=== PATIENT | female | born 1980 | race American Indian/Alaskan Native ===

== ENCOUNTER 2016-07-07 07:57 | Emergency (ER) | payer SELFPAY ==
[2016-07-07 08:29] VITALS: BP 106/80
[2016-07-07 08:48] LABS: Basophils % (Auto) 0.4 % (0.0-1.8); Eosinophils % (Auto) 1.3 % (0.0-4.3); Hematocrit 36.6 % (30.3-42.9); Hemoglobin 12.2 gm/dl (10.1-14.3); Mean Corpuscular HGB Conc 33 % (30-34); Mean Corpuscular Hemoglobin 32 pg (28-32); Mean Corpuscular Volume 96 fl (79-97); Platelet Count 313 K/mm3 (140-440); Red Cell Distribution Width 14.6 % (13.2-15.2); White Blood Count 9.8 K/mm3 (4.5-11.0)
[2016-07-07 09:07] LABS: Alanine Aminotransferase 8 units/L (7-56); Albumin 4.3 g/dL (3.9-5); Albumin/Globulin Ratio 1.3 %; Alkaline Phosphatase 69 units/L (35-129); Anion Gap 16 mmol/L; Blood Urea Nitrogen 9 mg/dL (7-17); Calcium 9.3 mg/dL (8.4-10.2); Carbon Dioxide 27 mmol/L (22-30); Chloride 101.3 mmol/L (98-107); Glucose 90 mg/dL (65-100); Lipase 33 units/L (13-60); Sodium 140 mmol/L (137-145); Total Protein 7.6 g/dL (6.3-8.2)
[2016-07-07 11:23] LABS: Bacteria,Urine 1+ /HPF (Negative); Bilirubin,Urine NEG (Negative); Blood,Urine SM (Negative); Ketones,Urine NEG (Negative); Leukocyte Esterase,Urine NEG (Negative); Mucus,Urine 3+ /HPF; Nitrite,Urine NEG (Negative); Urobilinogen,Urine < 2.0 mg/dL (<2.0)
== END 2016-07-07 14:45 ==
LOC: ED 07:57
DX: K08.89 Other specified disorders of teeth and supporting structures (principal); F17.200 Nicotine dependence, unspecified, uncomplicated; F12.90 Cannabis use, unspecified, uncomplicated; Z88.8 Allergy status to other drugs, medicaments and biological substances; Z91.048 Other nonmedicinal substance allergy status; Z53.21 Procedure and treatment not carried out due to patient leaving prior to being seen by health care provider
CPT/HCPCS: 36415; 80053; 81001; 83690; 85025

== ENCOUNTER 2016-07-09 05:58 | Emergency (ER) | payer SELFPAY ==
[2016-07-09 07:05] VITALS: BP 146/97
--- NOTE | 2016-07-09 07:47 | Emergency Department Report ---
HPI - General Chief Complaint: Dental/Oral Time Seen by Provider: 07/09/16 07:23 - HPI HPI: Here reports that she's been is having toothache on and off for a while today at 7 out of 10 located to her right lower tooth. He reports that she's having facial swelling. Denies any fever or chills. She says she's been taking Tylenol and ibuprofen without any help. Pain and feels achy. Denies any sore throat or respiratory symptoms. ED Past Medical Hx - Past Medical History Previous Medical History?: No - Surgical History Past Surgical History?: Yes Additional Surgical History: left hand - Family History Family history: no significant - Social History Smoking Status: Current Every Day Smoker Substance Use Type: Marijuana - Medications Home Medications: Home Medications Medication Instructions Recorded Confirmed Last Taken Type Acetaminophen/Codeine [Tylenol 1 tab PO Q6H PRN #15 tab 07/09/16 Unknown Rx /Codeine # 3 tab] Penicillin Vk [Veetids TAB] 500 mg PO TID #60 tablet 07/09/16 Unknown Rx ED Review of Systems ROS: Stated complaint: TOOTHACHE Other details as noted in HPI Comment: All other systems reviewed and negative Constitutional: denies: chills, fever Eyes: denies: eye pain ENT: dental pain. denies: ear pain, throat pain, congestion Respiratory: no symptoms reported Cardiovascular: denies: chest pain, palpitations, edema, syncope Gastrointestinal: denies: nausea, vomiting Musculoskeletal: denies: back pain, arthralgia Skin: denies: rash Neurological: denies: headache Physical Exam - Physical Exam Vital Signs: Vital Signs 07/09/16 06:00 Temperature 98.7 F Pulse Rate 74 Blood Pressure 146/97 O2 Sat by Pulse 99 Oximetry General: This is a 46-year-old female that is nontoxic in appearance. She shouting and yelling. Physical Exam: Head: [Normocephalic atraumatic Mouth: Moist, no pharyngeal exudate or erythema. Uvula is midline and oral airway is patent. Positive dental caries. Gingival enlargement. No mucosa swelling or cellulitic areas. Neck: Supple, no C-spine tenderness, no tracheal deviation. Nontender to palpate. no adenopathy Ears: Bilateral TMs pearly styles.bilateral EAC without any redness swelling or drainage Eyes: Bilateral pupils equal and reactive to light, bilateral EOM intact. Bilateral sclera and conjunctiva without injection. Normal accommodation Nose: Mucosa normal. maxillary and frontal sinus non-tender to palpate. Lungs: Clear to auscultate bilaterally no rhonchi wheezes or rales. Normal work of breathing extremity; No CCE. +2 pulses. No neurovascular compromise Cardiovascular: S1-S2, regular rate rhythm. No murmurs. Skin: clean Dry and intact no rash no lesions Psych: Normal mood and behavior ED Course Vital Signs 07/09/16 06:00 Temperature 98.7 F Pulse Rate 74 Blood Pressure 146/97 O2 Sat by Pulse 99 Oximetry - Reevaluation(s) Reevaluation #1: 07/09/16 08:05 Patient given Motrin 800 mg in emergency room for toothache ED Medical Decision Making - Medical Decision Making ED course: with diagnosis of dental caries, gingival enlargement and toothache. She has a dentist that she can follow-up said right now she needs some medication to stop the pain. Discussed with patient her diagnosis and treatment plan. Patient discharged home with prescription for Tylenol No. 3 and penicillin VK . Critical care attestation.: If time is entered above; I have spent that time in minutes in the direct care of this critically ill patient, excluding procedure time. ED Disposition Clinical Impression: Tooth ache, Enlargement, gingival, Dental caries Disposition: DISCHARGED TO HOME OR SELFCARE Is pt being admited?: No Does the pt Need Aspirin: No Condition: Stable Instructions: Dental Caries (ED), Toothache (ED) Additional Instructions: Follow up with [facility] dental clinic as instructed. Take antibiotic as prescribed Do not use Tylenol No. 3 [address] or operating heavy machinery as this medication will cause drowsiness Prescriptions: Acetaminophen/Codeine [Tylenol /Codeine # 3 tab] 1 tab PO Q6H PRN #15 tab PRN Reason: Toothache Penicillin Vk [Veetids TAB] 500 mg PO TID #60 tablet Referrals: [facility] [Outside] - 2-3 Days [facility] [Outside] - 2-3 Days PRIMARY CARE, [Primary Care Provider] - 2-3 Days
[2016-07-09] MEDS ORDERED: MOTRIN PO ONE (08:04)
== END 2016-07-09 08:14 | disposition home or self-care (01) ==
LOC: ED 05:58
DX: K02.9 Dental caries, unspecified (principal); K06.1 Gingival enlargement; F17.200 Nicotine dependence, unspecified, uncomplicated; F12.10 Cannabis abuse, uncomplicated
CPT/HCPCS: 99282

== ENCOUNTER 2016-11-16 08:22 | Inpatient (IN) | payer MEDICAID ==
[2016-11-16 08:53] LABS: Basophils % (Auto) 0.6 % (0.0-1.8); Eosinophils % (Auto) 0.2 % (0.0-4.3); Hematocrit 40.1 % (30.3-42.9); Hemoglobin 13.7 gm/dl (10.1-14.3); Mean Corpuscular HGB Conc 34 % (30-34); Mean Corpuscular Hemoglobin 33 pg (28-32); Mean Corpuscular Volume 95 fl (79-97); Platelet Count 441 K/mm3 (140-440); Red Cell Distribution Width 14.1 % (13.2-15.2); White Blood Count 14.5 K/mm3 (4.5-11.0)
[2016-11-16 09:13] LABS: Anion Gap 21 mmol/L; BUN/Creatinine Ratio 11.42; Blood Urea Nitrogen 8 mg/dL (7-17); Calcium 9.8 mg/dL (8.4-10.2); Carbon Dioxide 20 mmol/L (22-30); Glucose 91 mg/dL (65-100); Potassium 3.9 mmol/L (3.6-5.0); Sodium 136 mmol/L (137-145)
[2016-11-16 09:52] LABS: INR 1.02 (0.87-1.13); Partial Thromboplastin Time 29.2 Sec. (24.2-36.6)
[2016-11-16 10:40] LABS: Bilirubin,Urine NEG (Negative); Blood,Urine LG (Negative); Ketones,Urine 20 mg/dL (Negative); Leukocyte Esterase,Urine TR (Negative); Mucus,Urine 3+ /HPF; Nitrite,Urine NEG (Negative); Urobilinogen,Urine < 2.0 mg/dL (<2.0)
[2016-11-16 10:42] LABS: RBC,Urine > 182.0 /HPF (0.0-6.0); WBC,Urine > 182.0 /HPF (0.0-6.0)
[2016-11-16] MEDS ORDERED: MORPHINE IV ONE (17:31)
[2016-11-16] MEDS ORDERED: ZOFRAN IV ONE ×2 (17:31→22:08)
[2016-11-16] MEDS ORDERED: NACL 0.9% 1000 ML 1,000 ML IV ONE (17:31)
[2016-11-16] MEDS ORDERED: BENADRYL IV ONE (17:51)
--- NOTE | 2016-11-16 18:44 | Emergency Department Report ---
HPI - General Chief Complaint: Chest Pain Time Seen by Provider: 11/16/16 16:39 - HPI HPI: The patient is a 36-year-old female who presents for evaluation of chest pain and abdominal pain. The patient reports severe chest pain for the past one day , 10/10 in severity, midsternal left-sided location, sharp in quality, radiating to the back, exacerbated with lying flat, and improved with sitting up. She shares that prior to her chest pain she experienced multiple episodes of nausea and vomiting that began 3 days ago along with generalized abdominal pain, 5/10 in severity, crampy in quality, exacerbated with vomiting. The patient denies fever, chills, night sweats, diarrhea, blood in the stool, dark tarry stool, dysuria, hematuria, flank pain, genital discharge, inability to pass flatus or defecate. She shares that she passed a bowel movement within the past 48 hours. She also says that she is currently on her menstrual period. She admits to irregular menstrual periods for many years and has had a prolonged menstrual period for the past 2-3 weeks. ED Past Medical Hx - Past Medical History Previous Medical History?: No - Surgical History Past Surgical History?: Yes Additional Surgical History: left hand, TUBAL LIGATION - Social History Smoking Status: Current Every Day Smoker Substance Use Type: None - Medications Home Medications: Home Medications Medication Instructions Recorded Confirmed Last Taken Type No Known Home Medications [No 11/16/16 11/16/16 Unknown History Reported Home Medications] ED Review of Systems ROS: Stated complaint: CHEST PAIN, VOMITING AND VAGINAL BLEEDING Other details as noted in HPI Constitutional: denies: fever ENT: denies: throat or neck pain Respiratory: denies: cough, shortness of breath Cardiovascular: reports chest pain Endocrine: denies unexplained weight loss or gain Gastrointestinal: reports abdominal pain, nausea Genitourinary: denies: dysuria Musculoskeletal: denies: leg swelling Skin: denies: rash Neurological: denies: headache Hematological/Lymphatic: denies: easy bleeding or easy bruising Psych: denies sadness or hopelessness Physical Exam - Physical Exam Vital Signs: Vital Signs 11/16/16 11/16/16 11/16/16 08:35 14:57 14:58 Temperature 99.3 F Pulse Rate 70 72 Respiratory 18 18 18 Rate Blood Pressure 140/98 137/95 [Left] O2 Sat by Pulse 100 100 100 Oximetry 11/16/16 17:48 Temperature Pulse Rate Respiratory 18 Rate Blood Pressure [Left] O2 Sat by Pulse Oximetry Physical Exam: General: well-nourished, well-developed, no acute distress Head: Normocephalic, atraumatic Eyes: normal sclera ENT: Mucous membranes are pale and dry Neck: No neck stiffness, no cervical adenopathy Respiratory: Breath sounds equal bilaterally, no wheezing, rales, or rhonchi Cardio: S1 and S2 present, no murmurs, rubs, gallops, capillary refill is delayed Abdomen: Normoactive bowel sounds, soft abdomen, generalized tenderness to palpation present, no rigidity, no guarding or rebound tenderness Chest WALL/Back: Chest pain is reproduced with supine positioning, No tenderness to palpation of the chest wall, no CVA tenderness with percussion Musc: No pitting edema Skin: No rash Neuro: no facial drooping, normal speech Psych: Normal affect ED Course Vital Signs 11/16/16 11/16/16 11/16/16 08:35 14:57 14:58 Temperature 99.3 F Pulse Rate 70 72 Respiratory 18 18 18 Rate Blood Pressure 140/98 137/95 [Left] O2 Sat by Pulse 100 100 100 Oximetry 11/16/16 17:48 Temperature Pulse Rate Respiratory 18 Rate Blood Pressure [Left] O2 Sat by Pulse Oximetry ED Medical Decision Making - Lab Data Result diagrams: 11/16/16 08:38 11/16/16 08:38 - Medical Decision Making The patient was seen and examined by myself. The patient is placed on a monitoring engineer and continuous pulse ox. On initial evaluation, the patient was found to be in no distress. EKG was negative for findings suggestive of acute cardiac infarct. Labs and imaging are obtained. Chest x-ray is negative for pneumothorax, focal consolidation, pulmonary vascular congestion, pleural effusion, or other obvious acute cardiopulmonary disease process. The patient is given IV morphine for pain, IV Protonix for treatment of GI bleed, and 1 L normal saline fluid bolus for treatment of dehydration. Lab results revealed elevated WBC of 14, and otherwise labs were non-concerning including nml levels of troponin, hemoglobin, hematocrit, electrolytes, renal function, lfts, lipase , and negative test. CT scan with IV contrast of the chest is negative for mediastinitis, pericarditis, aortic dissection, or other emergent intrathoracic disease process. CT scan of the abdomen and pelvis is negative for aortic injury, bowel obstruction, bowel perforation, or other emergent intra-abdominal disease process. Despite negative initial imaging, the patient's symptoms and exam findings are concerning for Boerhaave syndrome. The patient is given IV Zosyn and Rocephin for treatment of potential developing mediastinitis, and started on an IV Protonix drip for treatment of GI bleed.. The on-call meat smoker Dr. Sanchez was consulted. He agreed to consultation and requested the patient receive esophagram at earliest possible time. Communication order is placed for IR consult at 7am for arrangement of esophagram in the am. The on-call hospitalist service was contacted. They agreed to admit the patient for further treatment and close monitoring. The ED admit order was placed. The patient was admitted in guarded condition. Critical care attestation.: If time is entered above; I have spent that time in minutes in the direct care of this critically ill patient, excluding procedure time. ED Disposition Clinical Impression: Boerhaave syndrome, Acute chest pain, Acute upper GI bleeding Gastritis Qualifiers: Gastritis type: unspecified gastritis Chronicity: acute Gastritis bleeding: with bleeding Qualified Code(s): K29.01 - Acute gastritis with bleeding Intractable nausea and vomiting Qualifiers: Vomiting type: unspecified Qualified Code(s): R11.2 - Nausea with vomiting, unspecified Disposition: 09 OP ADMIT IP TO THIS HOSP Is pt being admited?: Yes Does the pt Need Aspirin: No (acute gi bleed) Condition: Serious Instructions: Chest Pain (ED) Referrals: PRIMARY CARE, [Primary Care Provider] - 3-5 Days Time of Disposition: 02:11
[2016-11-16] MEDS ORDERED: DILAUDID IV ONE (18:51)
--- NOTE | 2016-11-16 19:34 | XRay Report ---
FINAL REPORT EXAM: XR CHEST 1V AP HISTORY: chest pain TECHNIQUE: Single-view chest PRIORS: None. FINDINGS: No focal consolidations are seen in the lungs.The cardiomediastinal silhouette is within normal limits for size and contour. No acute osseous abnormality is identified. IMPRESSION: 1. No definite radiographic evidence of acute cardiopulmonary disease.
--- NOTE | 2016-11-16 21:08 | Cat Scan Report ---
FINAL REPORT EXAM: CT CHEST W CON HISTORY: pleuritic chest pain, worst supine, WBC 14 TECHNIQUE: Serial axial images through the abdomen and pelvis with coronal and sagittal reconstruction. Intravenous administration of 100 milliliters Omnipaque 300 PRIORS: None. FINDINGS: No focal consolidations are seen in the lungs and there are no pleural effusions. No mediastinal adenopathy is identified. The heart measures approximately 12 centimeters in length. No abnormal filling defects are identified in the pulmonary arteries. The gastric mucosa is mildly hyper enhancing. No acute osseous abnormality is identified. IMPRESSION: 1. No definite acute pulmonary embolism is identified. 2. No focal infiltrate or pleural effusion is seen. 3. Gastric mucosa is mildly hyper enhancing. Possibility of gastritis is not excluded.
[2016-11-16] MEDS ORDERED: VALIUM IV ONE ×2 (22:08→23:00)
[2016-11-16] MEDS ORDERED: MORPHINE ONE ×2 (22:50)
[2016-11-16] MEDS ORDERED: PROTONIX IV ONE (23:00)
[2016-11-17] MEDS ORDERED: ROCEPHIN/NS 1 GM/50 ML 1 GM/50 ML BAG IV ONE (00:34)
[2016-11-17] MEDS ORDERED: SUBLIMAZE IV ONE (00:58)
[2016-11-17] MEDS ORDERED: ATIVAN IV ONE (00:58)
--- NOTE | 2016-11-17 01:24 | Cat Scan Report ---
FINAL REPORT PROCEDURE: CT ABDOMEN PELVIS W CON TECHNIQUE: Computerized axial tomography of the abdomen and pelvis was performed after the IV injection of iodinated nonionic contrast. HISTORY: generalized abd pain, coffe ground emesis COMPARISON: No prior studies are available for comparison. FINDINGS: Visualized lower thorax: No significant abnormality. Liver: Normal size and attenuation. Spleen: Normal size and attenuation. Gallbladder and biliary system: Normal. Pancreas: Normal. Adrenals: Normal. Kidneys: Normal. GI tract: There is no bowel obstruction, colitis or enteritis. The appendix is normal.. Lymph nodes and mesentery: Normal. Vasculature: Normal. Bladder: Normal. Reproductive organs: Uterus is intact. There is a 3 centimeter cyst versus dermoid in the left ovary.. Peritoneum: There is no ascites, free air, abscess or adenopathy.. Musculoskeletal structures: No significant abnormality. Other: None. IMPRESSION: There is no acute bowel abnormality. There is a 3 centimeter cyst versus dermoid in the left ovary.. There is no ascites, free air, abscess or adenopathy..
[2016-11-17] MEDS ORDERED: ZOFRAN IV ONE (02:31)
[2016-11-17] MEDS ORDERED: PROTONIX 80 MG in NACL 0.9% 100 ML IV SCH (03:00)
[2016-11-17] MEDS: ZOSYN/NS 3.375GM/50ML 3.375 GM/50 ML BAG IV SCH ×2 (03:00→09:30)
[2016-11-17] MEDS ORDERED: NARCAN 0.4 MG/1 ML IV PRN (03:01)
[2016-11-17] MEDS ORDERED: DULCOLAX PR PRN (03:01)
[2016-11-17] MEDS ORDERED: TYLENOL PO PRN (03:01)
[2016-11-17] MEDS ORDERED: MILK OF MAGNESIA PO PRN (03:01)
[2016-11-17] MEDS ORDERED: PROVENTIL IH PRN (03:01)
[2016-11-17 03:02] LABS: Alanine Aminotransferase 8 units/L (7-56); Albumin 3.7 g/dL (3.9-5); Albumin/Globulin Ratio 1.2 %; Alkaline Phosphatase 49 units/L (35-129); Lipase 15 units/L (13-60); Total Protein 6.9 g/dL (6.3-8.2)
[2016-11-17 03:05] LABS: Hematocrit 35.1 % (30.3-42.9); Hemoglobin 11.6 gm/dl (10.1-14.3); Mean Corpuscular HGB Conc 33 % (30-34); Mean Corpuscular Hemoglobin 32 pg (28-32); Mean Corpuscular Volume 97 fl (79-97); Platelet Count 373 K/mm3 (140-440); Red Blood Count 3.61 M/mm3 (3.65-5.03); Red Cell Distribution Width 13.7 % (13.2-15.2); White Blood Count 13.8 K/mm3 (4.5-11.0)
[2016-11-17 03:06] LABS: Bilirubin,Direct < 0.2 mg/dL (0-0.2); Bilirubin,Indirect 0.3 mg/dL
[2016-11-17] MEDS ORDERED: PROTONIX IV ONE (03:06)
--- NOTE | 2016-11-17 03:12 | History and Physical Report ---
History of Present Illness Date of examination: 11/17/16 Date of admission: 11/17/2016 Chief complaint: Chest pain abdominal pain persistent nausea and vomiting with blood History of present illness: The patient is a 36-year-old female who presents for evaluation of chest pain and abdominal pain. The patient reports severe chest pain for the past one day , 10/10 in severity, midsternal left-sided location, sharp in quality, radiating to the back, exacerbated with lying flat, and improved with sitting up. She shares that prior to her chest pain she experienced multiple episodes of nausea and vomiting that began 3 days ago along with generalized abdominal pain, 5/10 in severity, crampy in quality, exacerbated with vomiting. The patient denies fever, chills, night sweats, diarrhea, blood in the stool, dark tarry stool, dysuria, hematuria, flank pain, genital discharge, inability to pass flatus or defecate. She shares that she passed a bowel movement within the past 48 hours. She also says that she is currently on her menstrual period. She admits to irregular menstrual periods for many years and has had a prolonged menstrual period for the past 2-3 weeks. Past History Past Medical History: No medical history Past Surgical History: Other (hand surgery and tubal ligation) Social history: smoking, full code. denies: alcohol abuse, IV drug use Family history: no significant family history Medications and Allergies Allergies Allergy/AdvReac Type Severity Reaction Status Date / Time povidone-iodine AdvReac Rash Verified 07/07/16 08:29 [From Betadine] soap [From Betadine] AdvReac Rash Verified 07/07/16 08:29 Home Medications Medication Instructions Recorded Confirmed Last Taken Type No Known Home Medications [No 11/16/16 11/16/16 Unknown History Reported Home Medications] Active Meds: Active Medications Piperacillin Sod/Tazobactam Sod (Zosyn/Ns 3.375gm/50ml) 3.375 gm in 50 mls @ 100 mls/hr IV Q6H TARAN Pantoprazole Sodium 80 mg/ (Sodium Chloride) 100 mls @ 10 mls/hr IV DIRECT TRAAN PRN Reason: 8 MG/HR Review of Systems All systems: negative (as mentioned in HPI) Exam - Physical Exam Narrative exam: Gen - patient is awake alert oriented to time place and person in mild distress secondary to pain HEENT - head is atraumatic normocephalic pupils equal round reactive to light, extraocular movements intact, oral mucosa moderately dry , oropharynx clear neck is supple no JVD no thyromegaly or lymphadenopathy no carotid bruits trachea is midline Heart - regular rate and rhythm no murmurs or gallops PMI nondisplaced Lungs - clear to auscultation bilaterally nonlabored breathing normal chest wall expansion no chest wall tenderness Abdomen - soft nondistended , mild epigastric tenderness with no rebound guarding or rigidity, normoactive bowel sounds, no hepatosplenomegaly , no abdominal masses or bruit appreciated Extremities - no cyanosis or edema. Neurological - grossly intact and nonfocal. Sensation is grossly intact. Cranial nerves II-12 grossly intact. No cerebellar signs. Skin - warm and dry no rashes or bruises Psychiatric - appropriate mood and affect Vascular system - no lymphadenopathy distal pulses 2+ bilaterally - Constitutional Vitals: Temp Pulse Resp BP Pulse Ox 99.3 F 71 16 111/84 99 11/16/16 14:57 11/17/16 02:09 11/17/16 02:09 11/17/16 02:09 11/17/16 02:09 Results - Labs CBC & Chem 7: 11/17/16 02:42 11/16/16 08:38 Labs: Laboratory Last Values WBC 13.8 K/mm3 (4.5-11.0) H 11/17/16 02:42 RBC 3.61 M/mm3 (3.65-5.03) L 11/17/16 02:42 Hgb 11.6 gm/dl (10.1-14.3) 11/17/16 02:42 Hct 35.1 % (30.3-42.9) 11/17/16 02:42 MCV 97 fl (79-97) 11/17/16 02:42 MCH 32 pg (28-32) 11/17/16 02:42 MCHC 33 % (30-34) 11/17/16 02:42 RDW 13.7 % (13.2-15.2) 11/17/16 02:42 Plt Count 373 K/mm3 (140-440) 11/17/16 02:42 Lymph % (Auto) 26.0 % (13.4-35.0) 11/16/16 08:38 Rolette % (Auto) 6.4 % (0.0-7.3) 11/16/16 08:38 Eos % (Auto) 0.2 % (0.0-4.3) 11/16/16 08:38 Baso % (Auto) 0.6 % (0.0-1.8) 11/16/16 08:38 Lymph # Outside Plant Cable Engineer 11/17/16 02:42 Rolette # 0.9 K/mm3 (0.0-0.8) H 11/16/16 08:38 Eos # 0.0 K/mm3 (0.0-0.4) 11/16/16 08:38 Baso # 0.1 K/mm3 (0.0-0.1) 11/16/16 08:38 Seg Neutrophils % 66.8 % (40.0-70.0) 11/16/16 08:38 Seg Neutrophils # 9.7 K/mm3 (1.8-7.7) H 11/16/16 08:38 PT 13.9 Sec. (12.2-14.9) 11/16/16 08:38 INR 1.02 (0.87-1.13) 11/16/16 08:38 APTT 29.2 Sec. (24.2-36.6) 11/16/16 08:38 Sodium 136 mmol/L (137-145) L 11/16/16 08:38 Potassium 3.9 mmol/L (3.6-5.0) 11/16/16 08:38 Chloride 99.0 mmol/L (98-107) 11/16/16 08:38 Carbon Dioxide 20 mmol/L (22-30) L 11/16/16 08:38 Anion Gap 21 mmol/L 11/16/16 08:38 BUN 8 mg/dL (7-17) 11/16/16 08:38 Creatinine 0.7 mg/dL (0.7-1.2) 11/16/16 08:38 Estimated GFR > 60 ml/min 11/16/16 08:38 BUN/Creatinine Ratio 11.42 % 11/16/16 08:38 Glucose 91 mg/dL (65-100) 11/16/16 08:38 Calcium 9.8 mg/dL (8.4-10.2) 11/16/16 08:38 Total Bilirubin 0.50 mg/dL (0.1-1.2) 11/17/16 02:08 Direct Bilirubin < 0.2 mg/dL (0-0.2) 11/17/16 02:08 Indirect Bilirubin 0.3 mg/dL 11/17/16 02:08 AST 10 units/L (5-40) 11/17/16 02:08 ALT 8 units/L (7-56) 11/17/16 02:08 Alkaline Phosphatase 49 units/L (35-129) 11/17/16 02:08 Troponin T < 0.010 ng/mL (0.00-0.029) 11/16/16 15:01 Total Protein 6.9 g/dL (6.3-8.2) 11/17/16 02:08 Albumin 3.7 g/dL (3.9-5) L 11/17/16 02:08 Albumin/Globulin Ratio 1.2 % 11/17/16 02:08 Lipase 15 units/L (13-60) 11/17/16 02:08 HCG, Qual Negative (Negative) 11/16/16 08:38 Urine Color Red (Yellow) 11/16/16 10:01 Urine Turbidity Cloudy (Clear) 11/16/16 10:01 Urine pH 6.0 (5.0-7.0) 11/16/16 10:01 Ur Specific [place] 1.027 (1.003-1.030) 11/16/16 10:01 Urine Protein 100 mg/dl mg/dL (Negative) 11/16/16 10:01 Urine Glucose (UA) Neg mg/dL (Negative) 11/16/16 10:01 Urine Ketones 20 mg/dL (Negative) 11/16/16 10:01 Urine Blood Lg (Negative) 11/16/16 10:01 Urine Nitrite Neg (Negative) 11/16/16 10:01 Urine Bilirubin Neg (Negative) 11/16/16 10:01 Urine Urobilinogen < 2.0 mg/dL (<2.0) 11/16/16 10:01 Ur Leukocyte Esterase Tr (Negative) 11/16/16 10:01 Urine WBC (Auto) > 182.0 /HPF (0.0-6.0) H 11/16/16 10:01 Urine RBC (Auto) > 182.0 /HPF (0.0-6.0) 11/16/16 10:01 U Epithel Cells (Auto) 11.0 /HPF (0-13.0) 11/16/16 10:01 Urine Mucus 3+ /HPF 11/16/16 10:01 Blood Type O POSITIVE 11/16/16 08:38 Antibody Screen Negative 11/16/16 08:38 - Imaging and Cardiology Imaging and Cardiology: EKG was negative for findings suggestive of acute cardiac infarct. Labs and imaging are obtained. Chest x-ray is negative for pneumothorax, focal consolidation, pulmonary vascular congestion, pleural effusion, or other obvious acute cardiopulmonary disease process. The patient is given IV morphine for pain, and 1 L normal saline fluid bolus for treatment of dehydration. Lab results revealed elevated WBC of 14, and otherwise labs were non-concerning including nml levels of troponin, hemoglobin, hematocrit, electrolytes, renal function, and negative test. CT scan with IV contrast of the chest is negative for mediastinitis, pericarditis, aortic dissection, or other emergent intrathoracic disease process. CT scan of the abdomen and pelvis is negative for aortic injury, bowel obstruction, bowel perforation, or other emergent intra-abdominal disease process. Assessment and Plan Assessment and plan: Assessment and plan - patient will be admitted to medical floor where telemetric * Acute chest pain - doubt acute coronary syndrome. Most likely secondary to her upper esophagitis and gastritis related pain. Because of the nature of her intractable nausea and vomiting possibly patient may have a Arlene-Castillo tear versus Boerhaave's syndrome. Reassured the patient symptomatically with pain medications * Arlene-Castillo tear versus Boerhaave syndrome - likely due to intractable nausea vomiting over the past 4 days. We'll give the patient nothing by mouth GI has been consulted to patient also scheduled for a esophagogram in a.m. Upper GI bleed likely secondary to gastritis is with hemorrhage versus secondary to Arlene-Castillo tear or Boerhaave syndrome. We will give the patient 80 mg Protonix bolus and start her on Protonix. Keep nothing by mouth until GI has evaluated the patient. Start her empiric antibiotics * Acute gastritis with hemorrhage management as mentioned above * UTI - cultures have been sent will start her on empiric Levaquin on the results * Monitor CBC and electrolytes, replace electrolytes when necessary DVT prophylaxis with SCDs only because of her upper GI bleed monitor and follow the patient closely VTE prophylaxis?: Mechanical Reason for no VTE Prophylaxis: Bleeding Plan of care discussed with patient/family: Yes
[2016-11-17 04:07] LABS: Basophils % (Manual) 0 % (0.0-1.8); Blastocytes % (Manual) 0 %
[2016-11-17 04:08] LABS: Anisocytosis Few; Diff Status Complete; Hypersegmented Neutrophils Rare; Large Platelets Rare
[2016-11-17] MEDS: MORPHINE IV PRN ×3 (05:29→20:51)
[2016-11-17] MEDS: NACL 0.9% 1000 ML 1,000 ML IV SCH ×4 (06:20→20:41)
--- NOTE | 2016-11-17 08:39 | Progress Note ---
Assessment and Plan Assessment and plan: The patient is a 36-year-old female who presents for evaluation of chest pain and abdominal pain. The patient reports severe chest pain for the past one day , 10/10 in severity, midsternal left-sided location, sharp in quality, radiating to the back, exacerbated with lying flat, and improved with sitting up. She shares that prior to her chest pain she experienced multiple episodes of nausea and vomiting that began 3 days ago along with generalized abdominal pain, 5/10 in severity, crampy in quality, exacerbated with vomiting. The patient denies fever, chills, night sweats, diarrhea, blood in the stool, dark tarry stool, dysuria, hematuria, flank pain, genital discharge, inability to pass flatus or defecate. She shares that she passed a bowel movement within the past 48 hours. She also says that she is currently on her menstrual period. She admits to irregular menstrual periods for many years and has had a prolonged menstrual period for the past 2-3 weeks Acute chest pain * Doubt acute coronary syndrome. Most likely secondary to her upper esophagitis and gastritis related pain. Because of the nature of her intractable nausea and vomiting possibly patient may have a Arlene-Castillo tear versus Boerhaave's syndrome. Reassured the patient symptomatically with pain medications * Check cardiac enzymes, Peritoneal irriatation. Doubt. Arlene-Castillo tear versus Boerhaave syndrome * likely due to intractable nausea vomiting over the past 4 days. We'll give the patient nothing by mouth GI has been consulted to patient also scheduled for a esophagogram in a.m. Upper GI bleed likely secondary to gastritis is with hemorrhage versus secondary to Arlene-Castillo tear or Boerhaave syndrome. We will give the patient 80 mg Protonix bolus and start her on Protonix. Keep nothing by mouth until GI has evaluated the patient. Start her empiric antibiotics Acute gastritis with hemorrhage * management as mentioned above Leukocytosis * Possible secondary to UTI. no clear evidence of sepsis UTI * cultures have been sent, continue her on empiric Levaquin while awaiting results * Monitor CBC and electrolytes, replace electrolytes when necessary DUB * Recommended outpatient STROBOSCOPE OPERATOR eval Hematuria * Secondary to Menses. Patient currently on he mestrual period DVT prophylaxis * SCDs only because of her upper GI bleed monitor and follow the patient closely * Plan discussed with the patient History Interval history: Patient seen and examined in no acute distress. Hospitalist Physical - Physical exam Narrative exam: VITAL SIGNS: Reviewed. GENERAL: The patient appeared well nourished and normally developed. Vital signs as documented. HEAD: No signs of head trauma. EYES: Pupils are equal. Extraocular motions intact. EARS: Hearing grossly intact. MOUTH: Oropharynx is normal. NECK: No adenopathy, no JVD. CHEST: Chest with clear breath sounds bilaterally. No wheezes, rales, or rhonchi. CARDIAC: Regular rate and rhythm. S1 and S2, without murmurs, gallops, or rubs. VASCULAR: No Edema. Peripheral pulses normal and equal in all extremities. ABDOMEN: Soft, without detectable tenderness. No sign of distention. No rebound or guarding, and no masses palpated. Bowel Sounds normal. MUSCULOSKELETAL: Good range of motion of all major joints. Extremities without clubbing, cyanosis or edema. NEUROLOGIC EXAM: Alert and oriented x 3. No focal sensory or strength deficits. Speech normal. Follows commands. PSYCHIATRIC: Mood normal. SKIN: No rash or lesions. - Constitutional Vitals: Temp Pulse Resp BP Pulse Ox 98.2 F 70 18 127/92 100 11/17/16 07:19 11/17/16 07:19 11/17/16 07:19 11/17/16 07:19 11/17/16 07:19 Results - Labs CBC & Chem 7: 11/18/16 05:29 11/18/16 05:29 Labs: Laboratory Last Values WBC 13.8 K/mm3 (4.5-11.0) H 11/17/16 02:42 RBC 3.61 M/mm3 (3.65-5.03) L 11/17/16 02:42 Hgb 11.6 gm/dl (10.1-14.3) 11/17/16 02:42 Hct 35.1 % (30.3-42.9) 11/17/16 02:42 MCV 97 fl (79-97) 11/17/16 02:42 MCH 32 pg (28-32) 11/17/16 02:42 MCHC 33 % (30-34) 11/17/16 02:42 RDW 13.7 % (13.2-15.2) 11/17/16 02:42 Plt Count 373 K/mm3 (140-440) 11/17/16 02:42 Lymph % (Auto) 26.0 % (13.4-35.0) 11/16/16 08:38 [place] % (Auto) 6.4 % (0.0-7.3) 11/16/16 08:38 Eos % (Auto) 0.2 % (0.0-4.3) 11/16/16 08:38 Baso % (Auto) 0.6 % (0.0-1.8) 11/16/16 08:38 Lymph # Implementation Lead 11/17/16 02:42 [place] # 0.9 K/mm3 (0.0-0.8) H 11/16/16 08:38 Eos # 0.0 K/mm3 (0.0-0.4) 11/16/16 08:38 Baso # 0.1 K/mm3 (0.0-0.1) 11/16/16 08:38 Add Manual Diff Complete 11/17/16 02:42 Total Counted 100 11/17/16 02:42 Seg Neutrophils % 66.8 % (40.0-70.0) 11/16/16 08:38 Seg Neuts % (Manual) 56.0 % (40.0-70.0) 11/17/16 02:42 Band Neutrophils % 0 % 11/17/16 02:42 Lymphocytes % (Manual) 32.0 % (13.4-35.0) 11/17/16 02:42 Reactive Lymphs % (Man) 0 % 11/17/16 02:42 Monocytes % (Manual) 6.0 % (0.0-7.3) 11/17/16 02:42 Eosinophils % (Manual) 3.0 % (0.0-4.3) 11/17/16 02:42 Basophils % (Manual) 0 % (0.0-1.8) 11/17/16 02:42 Metamyelocytes % 3.0 % 11/17/16 02:42 Myelocytes % 0 % 11/17/16 02:42 Promyelocytes % 0 % 11/17/16 02:42 Blast Cells % 0 % 11/17/16 02:42 Nucleated RBC % Not Reportable 11/17/16 02:42 Seg Neutrophils # 9.7 K/mm3 (1.8-7.7) H 11/16/16 08:38 Seg Neutrophils # Man 7.7 K/mm3 (1.8-7.7) 11/17/16 02:42 Band Neutrophils # 0.0 K/mm3 11/17/16 02:42 Lymphocytes # (Manual) 4.4 K/mm3 (1.2-5.4) 11/17/16 02:42 Abs React Lymphs (Man) 0.0 K/mm3 11/17/16 02:42 Monocytes # (Manual) 0.8 K/mm3 (0.0-0.8) 11/17/16 02:42 Eosinophils # (Manual) 0.4 K/mm3 (0.0-0.4) 11/17/16 02:42 Basophils # (Manual) 0.0 K/mm3 (0.0-0.1) 11/17/16 02:42 Metamyelocytes # 0.4 K/mm3 11/17/16 02:42 Myelocytes # 0.0 K/mm3 11/17/16 02:42 Promyelocytes # 0.0 K/mm3 11/17/16 02:42 Blast Cells # 0.0 K/mm3 11/17/16 02:42 WBC Morphology Not Reportable 11/17/16 02:42 Hypersegmented Neuts Rare 11/17/16 02:42 Hyposegmented Neuts Not Reportable 11/17/16 02:42 Hypogranular Neuts Not Reportable 11/17/16 02:42 Smudge Cells Not Reportable 11/17/16 02:42 Toxic Granulation Not Reportable 11/17/16 02:42 Toxic Vacuolation Not Reportable 11/17/16 02:42 Dohle Bodies Not Reportable 11/17/16 02:42 Pelger-Huet Anomaly Not Reportable 11/17/16 02:42 Divya Rods Not Reportable 11/17/16 02:42 Platelet Estimate Appears normal 11/17/16 02:42 Clumped Platelets Not Reportable 11/17/16 02:42 Plt Clumps, EDTA Not Reportable 11/17/16 02:42 Large Platelets Rare 11/17/16 02:42 Giant Platelets Not Reportable 11/17/16 02:42 Platelet Satelliting Not Reportable 11/17/16 02:42 Plt Morphology Comment Not Reportable 11/17/16 02:42 RBC Morphology Not Reportable 11/17/16 02:42 Dimorphic RBCs Not Reportable 11/17/16 02:42 Polychromasia Not Reportable 11/17/16 02:42 Hypochromasia Not Reportable 11/17/16 02:42 Poikilocytosis Not Reportable 11/17/16 02:42 Anisocytosis Few 11/17/16 02:42 Microcytosis Not Reportable 11/17/16 02:42 Macrocytosis Not Reportable 11/17/16 02:42 Spherocytes Not Reportable 11/17/16 02:42 Pappenheimer Bodies Not Reportable 11/17/16 02:42 Sickle Cells Not Reportable 11/17/16 02:42 Target Cells Not Reportable 11/17/16 02:42 Tear Drop Cells Not Reportable 11/17/16 02:42 Ovalocytes Not Reportable 11/17/16 02:42 Helmet Cells Not Reportable 11/17/16 02:42 [place] Bodies Not Reportable 11/17/16 02:42 [place] Rings Not Reportable 11/17/16 02:42 [place] Cells Not Reportable 11/17/16 02:42 Bite Cells Not Reportable 11/17/16 02:42 Crenated Cell Not Reportable 11/17/16 02:42 Elliptocytes Not Reportable 11/17/16 02:42 Acanthocytes (Spur) Not Reportable 11/17/16 02:42 Rouleaux Not Reportable 11/17/16 02:42 Hemoglobin C Crystals Not Reportable 11/17/16 02:42 Schistocytes Not Reportable 11/17/16 02:42 Malaria parasites Not Reportable 11/17/16 02:42 Kulwinder Bodies Not Reportable 11/17/16 02:42 Hem Pathologist Commnt No 11/17/16 02:42 PT 13.9 Sec. (12.2-14.9) 11/16/16 08:38 INR 1.02 (0.87-1.13) 11/16/16 08:38 APTT 29.2 Sec. (24.2-36.6) 11/16/16 08:38 Sodium 136 mmol/L (137-145) L 11/16/16 08:38 Potassium 3.9 mmol/L (3.6-5.0) 11/16/16 08:38 Chloride 99.0 mmol/L (98-107) 11/16/16 08:38 Carbon Dioxide 20 mmol/L (22-30) L 11/16/16 08:38 Anion Gap 21 mmol/L 11/16/16 08:38 BUN 8 mg/dL (7-17) 11/16/16 08:38 Creatinine 0.7 mg/dL (0.7-1.2) 11/16/16 08:38 Estimated GFR > 60 ml/min 11/16/16 08:38 BUN/Creatinine Ratio 11.42 % 11/16/16 08:38 Glucose 91 mg/dL (65-100) 11/16/16 08:38 Calcium 9.8 mg/dL (8.4-10.2) 11/16/16 08:38 Total Bilirubin 0.50 mg/dL (0.1-1.2) 11/17/16 02:08 Direct Bilirubin < 0.2 mg/dL (0-0.2) 11/17/16 02:08 Indirect Bilirubin 0.3 mg/dL 11/17/16 02:08 AST 10 units/L (5-40) 11/17/16 02:08 ALT 8 units/L (7-56) 11/17/16 02:08 Alkaline Phosphatase 49 units/L (35-129) 11/17/16 02:08 Troponin T < 0.010 ng/mL (0.00-0.029) 11/16/16 15:01 Total Protein 6.9 g/dL (6.3-8.2) 11/17/16 02:08 Albumin 3.7 g/dL (3.9-5) L 11/17/16 02:08 Albumin/Globulin Ratio 1.2 % 11/17/16 02:08 Lipase 15 units/L (13-60) 11/17/16 02:08 HCG, Qual Negative (Negative) 11/16/16 08:38 Urine Color Red (Yellow) 11/16/16 10:01 Urine Turbidity Cloudy (Clear) 11/16/16 10:01 Urine pH 6.0 (5.0-7.0) 11/16/16 10:01 Ur Specific [place] 1.027 (1.003-1.030) 11/16/16 10:01 Urine Protein 100 mg/dl mg/dL (Negative) 11/16/16 10:01 Urine Glucose (UA) Neg mg/dL (Negative) 11/16/16 10:01 Urine Ketones 20 mg/dL (Negative) 11/16/16 10:01 Urine Blood Lg (Negative) 11/16/16 10:01 Urine Nitrite Neg (Negative) 11/16/16 10:01 Urine Bilirubin Neg (Negative) 11/16/16 10:01 Urine Urobilinogen < 2.0 mg/dL (<2.0) 11/16/16 10:01 Ur Leukocyte Esterase Tr (Negative) 11/16/16 10:01 Urine WBC (Auto) > 182.0 /HPF (0.0-6.0) H 11/16/16 10:01 Urine RBC (Auto) > 182.0 /HPF (0.0-6.0) 11/16/16 10:01 U Epithel Cells (Auto) 11.0 /HPF (0-13.0) 11/16/16 10:01 Urine Mucus 3+ /HPF 11/16/16 10:01 Blood Type O POSITIVE 11/16/16 08:38 Antibody Screen Negative 11/16/16 08:38
--- NOTE | 2016-11-17 09:16 | Fluoroscopy Report ---
FLUOROSCOPY BARIUM SWALLOW/ESOPHAGRAM INDICATION: Chest pain after forceful emesis. COMPARISON: CTs from last evening. FINDINGS: Barium swallow performed using Gastrografin as also thick and thin barium, though limited due to extreme patient discomfort and severe lower chest and back pain on swallowing. First 3 images obtained for clarity specialists purposes. Initial diluted Gastrografin swallows demonstrate no gross leak with contrast emptying into the stomach. Subsequent thin barium images demonstrate normal proximal and mid esophagus. Gradual waist/narrowing along the lower third of the esophagus noted on some images, though same segment better distends on some other images and hence not excluded for spasm or peristaltic. Stomach suboptimally distended, though grossly within normal limits with contrast noted in the duodenum. CONCLUSION: No gross esophageal abnormality as a mucosal tear or perforation identified, though transient distal esophageal spasm not excluded, as described. Patient however demonstrated severe pain on swallowing. GI/endoscopic correlation suggested for further evaluation, as appropriate. Thank you for the opportunity to participate in this patient's care.
--- NOTE | 2016-11-17 09:36 | Gastroenterology Consultation ---
<MARIAAANIYAJENNA Noriega - Last Filed: 11/17/16 09:39> History of Present Illness - Reason for Consult Consult date: 11/17/16 GI bleed Requesting physician: CAMILLA DAWKINS - History of Present Illness Patient is a 36 y/o female with no medical history who presented to the ER yesterday with c/o CP, abd pain, and N/V. EKG, chest x-ray, cardiac enzymes, and CT abd were negative. Chest CT revealed possible gastritis. GI has been consulted for a GI bleed. Patient reports multiple episodes of N/V with coffee ground emesis that began 4 or 5 days ago and 1 episode of vomiting bright red blood last night. She tolerated drinking oral contrast this am with no N/V reported for esophagram but states she is now experiencing odynophagia. She also c/o continued CP that radiates to her back with occasional dizziness. Denies SOB, syncope, fever, abd pain, dysphagia, melena, diarrhea, constipation , or hematochezia. Last BM 2 days ago with brown stool. Reports taking 6 Goody' s powders on Sunday after N/V began, no other NSAID use. Current daily smoker but denies alcohol or substance abuse. No hx of liver disease. No hx or Fhx of GI cancers. Past History Past Medical History: No medical history Past Surgical History: Other (hand surgery and tubal ligation) Social history: smoking, full code. denies: alcohol abuse, IV drug use Family history: no significant family history Medications and Allergies Allergies Allergy/AdvReac Type Severity Reaction Status Date / Time povidone-iodine AdvReac Rash Verified 07/07/16 08:29 [From Betadine] soap [From Betadine] AdvReac Rash Verified 07/07/16 08:29 Home Medications Medication Instructions Recorded Confirmed Last Taken Type No Known Home Medications [No 11/16/16 11/16/16 Unknown History Reported Home Medications] Active Meds: Active Medications Acetaminophen (Tylenol) 650 mg PO Q4H PRN PRN Reason: Pain MILD(1-3)/Fever >100.5/YANES Albuterol (Proventil) 2.5 mg IH Q4HRT PRN PRN Reason: Shortness Of Breath Bisacodyl (Dulcolax) 10 mg NH QDAY PRN PRN Reason: Constipation unrelieved by MOM Hydromorphone HCl (Dilaudid) 0.5 mg IV Q3H PRN PRN Reason: Pain , Severe (7-10) Piperacillin Sod/Tazobactam Sod (Zosyn/Ns 3.375gm/50ml) 3.375 gm in 50 mls @ 100 mls/hr IV Q6H TARAN Last Admin: 11/17/16 03:00 Dose: 100 mls/hr Pantoprazole Sodium 80 mg/ (Sodium Chloride) 100 mls @ 10 mls/hr IV DIRECT TARAN PRN Reason: 8 MG/HR Levofloxacin/Dextrose (Levaquin 750mg/150ml) 750 mg in 150 mls @ 100 mls/hr IV Q24HR TARAN PRN Reason: Protocol Sodium Chloride (Nacl 0.9% 1000 Ml) 1,000 mls @ 150 mls/hr IV DIRECT TARAN Last Admin: 11/17/16 06:20 Dose: 150 mls/hr Magnesium Hydroxide (Milk Of Magnesia) 30 ml PO Q4H PRN PRN Reason: Constipation Metoclopramide HCl (Reglan) 10 mg IV Q6H PRN PRN Reason: Nausea And Vomiting Morphine Sulfate (Morphine) 2 mg IV Q4H PRN PRN Reason: Pain, Moderate (4-6) Last Admin: 11/17/16 05:29 Dose: 2 mg Naloxone HCl (Narcan 0.4 Mg/1 Ml) 0.1 mg IV Q2MIN PRN PRN Reason: Res Rate </= 8 or 02 SAT < 92% Ondansetron HCl (Zofran) 4 mg IV Q8H PRN PRN Reason: N/V unrelieved by Reglan Pneumococcal Polyvalent Vaccine (Pneumovax 23) 0.5 ml IM .ONCE ONE Stop: 11/17/16 12:01 Review of Systems - Review of Systems All systems: negative Ears, Nose, Throat: painful swallowing Cardiovascular: chest pain Gastrointestinal: nausea, vomiting, hematemesis, coffee ground emesis Neurological: other (dizziness) Exam - Constitutional Vital Signs: Temp Pulse Resp BP Pulse Ox 98.2 F 70 18 127/92 100 11/17/16 07:19 11/17/16 07:19 11/17/16 07:19 11/17/16 07:19 11/17/16 07:19 General appearance: no acute distress - EENT Eyes: PERRL, EOM intact ENT: hearing intact - Neck Neck: supple, normal ROM - Respiratory Respiratory: bilateral: CTA - Cardiovascular Rhythm: regular Heart Sounds: Present: S1 & S2 Extremities: No edema - Gastrointestinal General gastrointestinal: Present: soft, tender (epigastric), non-distended, normal bowel sounds - Integumentary Integumentary: Present: warm, dry - Neurologic Neurological: alert and oriented x3 - Labs CBC & Chem 7: 11/17/16 02:42 11/16/16 08:38 Assessment and Plan 1.GI bleed 2.coffee-ground emesis 3.hematemesis 4.odynophagia 5.CP -EKG, cardiac enzymes, chest x-ray, CT abd-negative -CT chest showed possible gastritis -esophagram showed no gross esophageal abnormality -HGB 11.6-trending down -continue to monitor H/H and transfuse as needed -hold blood thinning medications -pt currently hemodynamically stable -etiology most likely due to M-W tear -continue PPI drip -keep NPO -will schedule for EGD today -will follow <ROMEO SILVA R - Last Filed: 11/17/16 11:23> Medications and Allergies Active Meds: Active Medications Acetaminophen (Tylenol) 650 mg PO Q4H PRN PRN Reason: Pain MILD(1-3)/Fever >100.5/YANES Albuterol (Proventil) 2.5 mg IH Q4HRT PRN PRN Reason: Shortness Of Breath Bisacodyl (Dulcolax) 10 mg NH QDAY PRN PRN Reason: Constipation unrelieved by MOM Hydromorphone HCl (Dilaudid) 0.5 mg IV Q3H PRN PRN Reason: Pain , Severe (7-10) Piperacillin Sod/Tazobactam Sod (Zosyn/Ns 3.375gm/50ml) 3.375 gm in 50 mls @ 100 mls/hr IV Q6H TARAN Last Admin: 11/17/16 09:30 Dose: 100 mls/hr Pantoprazole Sodium 80 mg/ (Sodium Chloride) 100 mls @ 10 mls/hr IV DIRECT TARAN PRN Reason: 8 MG/HR Levofloxacin/Dextrose (Levaquin 750mg/150ml) 750 mg in 150 mls @ 100 mls/hr IV Q24HR TARAN PRN Reason: Protocol Last Admin: 11/17/16 10:53 Dose: 100 mls/hr Sodium Chloride (Nacl 0.9% 1000 Ml) 1,000 mls @ 150 mls/hr IV DIRECT TARAN Last Admin: 11/17/16 11:21 Dose: 150 mls/hr Magnesium Hydroxide (Milk Of Magnesia) 30 ml PO Q4H PRN PRN Reason: Constipation Metoclopramide HCl (Reglan) 10 mg IV Q6H PRN PRN Reason: Nausea And Vomiting Morphine Sulfate (Morphine) 2 mg IV Q4H PRN PRN Reason: Pain, Moderate (4-6) Last Admin: 11/17/16 09:37 Dose: 2 mg Naloxone HCl (Narcan 0.4 Mg/1 Ml) 0.1 mg IV Q2MIN PRN PRN Reason: Res Rate </= 8 or 02 SAT < 92% Ondansetron HCl (Zofran) 4 mg IV Q8H PRN PRN Reason: N/V unrelieved by Reglan Pneumococcal Polyvalent Vaccine (Pneumovax 23) 0.5 ml IM .ONCE ONE Stop: 11/17/16 12:01 Exam - Constitutional Vital Signs: Temp Pulse Resp BP Pulse Ox 98.4 F 60 11 L 140/87 100 11/17/16 11:14 11/17/16 11:14 11/17/16 11:14 11/17/16 11:14 11/17/16 11:14 - Labs CBC & Chem 7: 11/17/16 02:42 11/16/16 08:38 Assessment and Plan Pt had no GI symptoms prior to onset of N/V. Exam shows tenderness of L lower ribs. Imp - CGE - likely Arlene-Castillo tear. Will do EGD to assess. Chest pain - due to trauma/strain of repeated vomiting.
[2016-11-17] MEDS ORDERED: LEVAQUIN 750MG/150ML 750 MG/150 ML BAG IV SCH (10:00)
--- NOTE | 2016-11-17 10:47 | Anesthesia Consultation ---
Anesthesia Consult and Med Hx Date of service: 11/17/16 - Airway ROM Head & Neck: Adequate Mental/Hyoid Distance: Adequate Mallampati Class: Class II Intubation Access Assessment: Probably Good - Pulmonary Exam CTA: Yes - Cardiac Exam Cardiac Exam: RRR - Pre-Operative Health Status ASA Pre-Surgery Classification: ASA1 Proposed Anesthetic Plan: MAC - Pulmonary Hx Asthma: No COPD: No Hx Pneumonia: Yes - Cardiovascular System Hx Hypertension: No - Central Nervous System Hx Neuromuscular Disorder: No Hx Psychiatric Problems: No - Gastrointestinal Hx Gastroesophageal Reflux Disease: No - Endocrine Hx End Stage Renal Disease: No Hx Insulin Dependent Diabetes: No - Hematic Hx Anemia: No Hx Sickle Cell Disease: No - Other Systems Hx Alcohol Use: No Hx Substance Use: No Hx Cancer: No Hx Obesity: No - Additional Comments Anesthesia Medical History Comments: Present to ER with chest and abdominal pain. 3 days nausea and vomitting prior to admission with generalized abdominal pain.
--- NOTE | 2016-11-17 10:47 | Anesthesia Day of Surgery ---
Anesthesia Day of Surgery - Day of Surgery Patient Examined: Yes Patient H&P Reviewed: Yes Patient is NPO: Yes
[2016-11-17] MEDS ORDERED: DIPRIVAN 10 MG/ML IV ONE ×2 (11:09)
[2016-11-17] MEDS ORDERED: WATER FOR IRRIG STERILE IR ONE (11:20)
--- NOTE | 2016-11-17 11:36 | Post Operative Note ---
Pre-op diagnosis: Coffee ground emesis Post-op diagnosis: other (Normal exam) Findings: 1. Normal EGD Procedure: EGD Anesthesia: MAC Surgeon: ROMEO SILVA Estimated blood loss: none Pathology: none Condition: stable Disposition: floor (Advance diet as tolerated, and if does well, may discharge to home. Likely had self-limited viral process.)
[2016-11-17] MEDS ORDERED: PNEUMOVAX 23 IM ONE (12:00)
--- NOTE | 2016-11-17 12:23 | Post Anesthesia Evaluation ---
- Post Anesthesia Evaluation Patient Participated: Yes Airway Patent: Yes Stable Respiratory Function: Yes Nausea/Vomiting: No Temp > 96.8F: Yes Pain Manageable: Yes Adequeate Hydration: Yes Anesthesia Complications: No Block Receding Appropriately: Not Applicable Patient on Ventilator: No
[2016-11-17] MEDS: DILAUDID IV PRN ×2 (13:15→23:59)
--- NOTE | 2016-11-17 14:55 | Event Note ---
Date: 11/17/16 Patient seen and examined on acute distress likely left-sided costochondritis which has been present for 5 days and started after multiple retching episodes and attempt to vomit. Possible viral gastritis now resolved. We'll continue supportive care and possibly discharge in a.m. if patient remains stable.
[2016-11-17] MEDS: REGLAN IV PRN (15:19)
--- NOTE | 2016-11-17 15:19 | Operative Report ---
PROCEDURE: Upper endoscopy. PREOPERATIVE DIAGNOSIS: Coffee-ground emesis. POSTOPERATIVE DIAGNOSIS: Normal-upper endoscopy. SEDATION: MAC by Anesthesia. HISTORY: The patient is a 36-year-old woman who was in her usual state of good health until she had a 5-day episode with an acute onset of nausea and vomiting. This persisted and she developed coffee-ground emesis and one episode of what is described as red blood. Her hemoglobin is relatively normal at 11.7. The procedure, indications, risks, and benefits were explained and consent was obtained. The patient was placed in left lateral decubitus position and sedated. [facility] video upper endoscope was passed through the mouth and oropharynx into the descending duodenum. Scope was then gradually withdrawn with close inspection of mucosa. FINDINGS: 1. Normal-appearing esophagus with sharp Z-line located at 42 cm from the incisors. 2. Normal-appearing gastric antrum, fundus, body, and cardia. 3. Normal-appearing duodenal bulb and duodenum. The patient tolerated the procedure well without immediate complication. IMPRESSION: Normal upper endoscopy with no evidence of Arlene-Castillo tear or bleeding source. PLAN: Advance diet as tolerated. JOB# [id number] HRC/NTS
[2016-11-18] MEDS: NACL 0.9% 1000 ML 1,000 ML IV SCH (03:03)
[2016-11-18] MEDS: DILAUDID IV PRN ×2 (04:46→09:59)
[2016-11-18 06:01] LABS: Basophils % (Auto) 0.5 % (0.0-1.8); Eosinophils % (Auto) 2.5 % (0.0-4.3); Hematocrit 33.1 % (30.3-42.9); Hemoglobin 11.2 gm/dl (10.1-14.3); Mean Corpuscular HGB Conc 34 % (30-34); Mean Corpuscular Hemoglobin 33 pg (28-32); Mean Corpuscular Volume 97 fl (79-97); Platelet Count 295 K/mm3 (140-440); Red Blood Count 3.42 M/mm3 (3.65-5.03); Red Cell Distribution Width 13.9 % (13.2-15.2); White Blood Count 10.4 K/mm3 (4.5-11.0)
[2016-11-18 06:44] LABS: Alanine Aminotransferase 7 units/L (7-56); Albumin 3.2 g/dL (3.9-5); Albumin/Globulin Ratio 1.1 %; Alkaline Phosphatase 43 units/L (35-129); Anion Gap 17 mmol/L; BUN/Creatinine Ratio 6.66; Blood Urea Nitrogen 4 mg/dL (7-17); Calcium 7.9 mg/dL (8.4-10.2); Carbon Dioxide 21 mmol/L (22-30); Chloride 104.5 mmol/L (98-107); Glucose 67 mg/dL (65-100); Potassium 3.2 mmol/L (3.6-5.0); Sodium 139 mmol/L (137-145); Total Protein 6.2 g/dL (6.3-8.2)
[2016-11-18] MEDS ORDERED: K-DUR PO ONE (07:39)
[2016-11-18 09:25] LABS: Urine Drugs of Abuse Note Disclamer
[2016-11-18] MEDS: REGLAN IV PRN (09:58)
[2016-11-18] MEDS: ZOFRAN IV PRN ×2 (10:10)
--- NOTE | 2016-11-18 10:42 | Discharge Summary ---
Providers - Providers Date of Admission: 11/17/16 03:01 Date of discharge: 11/18/16 Attending physician: ORLY ARGUETA MD Primary care physician: EMERGENCY RESPONSE TECHNICIAN Hospitalization Reason for admission: chest pain Condition: Serious Hospital course: The patient is a 36-year-old female who presents for evaluation of chest pain and abdominal pain. The patient reports severe chest pain for the past one day , 10/10 in severity, midsternal left-sided location, sharp in quality, radiating to the back, exacerbated with lying flat, and improved with sitting up. She shares that prior to her chest pain she experienced multiple episodes of nausea and vomiting that began 3 days ago along with generalized abdominal pain, 5/10 in severity, crampy in quality, exacerbated with vomiting. The patient denies fever, chills, night sweats, diarrhea, blood in the stool, dark tarry stool, dysuria, hematuria, flank pain, genital discharge, inability to pass flatus or defecate. She shares that she passed a bowel movement within the past 48 hours. She also says that she is currently on her menstrual period. She admits to irregular menstrual periods for many years and has had a prolonged menstrual period for the past 2-3 weeks. The patient proceeded to have an endoscopy which did not reveal any acute pathology except for gastritis. It appears her pain is most likely from costochondritis as it is easily reproducible by pressure on the chest. It started after multiple retching episodes. She is clinically stable at this time she reports that the pressure is improving. Her cardiac enzymes are unremarkable CT abdomen and pelvis with contrast was also unremarkable. She is clinically stable for discharge at this time. Acute chest pain * Secondary to acute costochondritis Peritoneal irriatation. Acute gastritis Leukocytosis * Possible secondary to UTI. no clear evidence of sepsis UTI * Cultures remain negative continue empiric antibiotics and discharge DUB * Recommended outpatient PRODUCT SAFETY HEAD eval Hematuria * Secondary to Menses. Patient currently on he mestrual period Anorexia with malnutrition * Extensive counseling on dietary recommendation. Disposition: TO HOME OR SELFCARE Time spent for discharge: 35 Core Measure Documentation - Palliative Care Palliative Care/ Comfort Measures: Not Applicable - Core Measures Any of the following diagnoses?: none - VTE Discharge Requirements Deep Vein Thrombosis/Pulmonary Embolism Present on Admission: No Exam - Physical Exam Narrative exam: VITAL SIGNS: Reviewed. GENERAL: The patient appeared normally developed. Vital signs as documented. HEAD: No signs of head trauma. EYES: Pupils are equal. Extraocular motions intact. EARS: Hearing grossly intact. MOUTH: Oropharynx is normal. NECK: No adenopathy, no JVD. CHEST: Chest with clear breath sounds bilaterally. No wheezes, rales, or rhonchi. CARDIAC: Regular rate and rhythm. S1 and S2, without murmurs, gallops, or rubs. VASCULAR: No Edema. Peripheral pulses normal and equal in all extremities. ABDOMEN: Soft, without detectable tenderness. No sign of distention. No rebound or guarding, and no masses palpated. Bowel Sounds normal. MUSCULOSKELETAL: Good range of motion of all major joints. Extremities without clubbing, cyanosis or edema. NEUROLOGIC EXAM: Alert and oriented x 3. No focal sensory or strength deficits. Speech normal. Follows commands. PSYCHIATRIC: Mood normal. SKIN: No rash or lesions. - Constitutional Vitals: Temp Pulse Resp BP Pulse Ox 98.5 F 59 L 18 141/84 100 11/18/16 07:18 11/18/16 07:18 11/18/16 07:18 11/18/16 07:18 11/18/16 07:18 Plan Activity: advance as tolerated, fall precautions Diet: regular Special Instructions: record daily BP diary, smoking cessation Follow up with: PRIMARY CARE, [Primary Care Provider] - 3-5 Days Forms: Work/School Release Form Prescriptions: Famotidine [Pepcid] 20 mg PO BID #20 tablet traMADol [Ultram] 50 mg PO Q6HR PRN #14 tablet PRN Reason: Pain
[2016-11-18] MEDS ORDERED: Fluarix Quad 2017-2018(36 MOS+) IM ONE (11:38)
[2016-11-18 11:42] VITALS: BP 150/99
== END 2016-11-18 12:45 | disposition home or self-care (01) | DRG 377 ==
LOC: ED 08:22 → 3A 11-17 03:01
PROVIDERS: ADMIT Internal Medicine Geriatric Medicine; ATTEND Internal Medicine
PROC: 0DJ08ZZ Inspection of Upper Intestinal Tract, Via Natural or Artificial Opening Endoscopic (ICD-10-PCS; principal; 2016-11-17)
DX: K29.71 Gastritis, unspecified, with bleeding (principal); K65.9 Peritonitis, unspecified; M94.0 Chondrocostal junction syndrome [Tietze]; N39.0 Urinary tract infection, site not specified; F17.210 Nicotine dependence, cigarettes, uncomplicated; N93.8 Other specified abnormal uterine and vaginal bleeding; Z87.01 Personal history of pneumonia (recurrent); Z98.51 Tubal ligation status
CPT/HCPCS: 36415; 71010; 71260; 74177; 74220; 80048; 80053; 80074; 80307; 81001; 83690; 84484; 84703; 85007; 85025; 85610; 85730; 86850; 86900; 86901; 90686; 90732; 93005; 93010; 96374; 96375; 96376; C9113; J0696; J1170; J1200; J1956; J2060; J2270; J2405; J2543; J2704; J2765; J3010; J3360; J7030; Q9963; Q9967